=== PATIENT | male | born 1950 | race Caucasian/White ===

== ENCOUNTER 2019-09-01 00:40 | Inpatient (IN) | payer MEDICARE ==
[~2019-09-01] VITALS: Ht 185.4 cm; Wt 76.0 kg
[2019-09-01] MEDS ORDERED: hydrALAzine 20 MG/ML, 1ML ONE (00:44)
[2019-09-01] MEDS ORDERED: PIPERACILLIN/TAZO/PMX 3.375GM 50 ML ONE (00:51)
[2019-09-01] MEDS ORDERED: PIPERACILLIN/TAZO/PMX 3.375GM 50 ML IVPB ONE (01:00)
[2019-09-01] MEDS ORDERED: hydrALAzine 20 MG/ML, 1ML IV ONE ×2 (01:00)
[2019-09-01] MEDS ORDERED: ZIPRASIDONE 20 MG INJ IM ONE ×2 (01:00→01:07)
[2019-09-01] MEDS ORDERED: VANCOMYCIN PER PHARMACY MC ONE (01:00)
--- NOTE | 2019-09-01 01:28 | NUR ---
ABX DELAYED DUE TO LAB OBTAINING BLOOD CULTURES
[2019-09-01] MEDS ORDERED: PLEASE ENTER ALLERGIES MC SCH (01:30)
[2019-09-01] MEDS ORDERED: [UNRECOGNIZED DRUG - REMARK] MC SCH (01:30)
--- NOTE | 2019-09-01 01:34 | NUR ---
ZOSYN HELD DUE TO ALLERGY TO AMPICILLIN
[2019-09-01] MEDS ORDERED: CEFTRIAXONE PMX 1GM/50ML 50 ML ONE (01:36)
[2019-09-01 01:48] LABS: MICROSCOPIC INDICATED
--- NOTE | 2019-09-01 01:49 | NUR ---
PT TO BE INTUBATED DUE TO INABILITY TO PROTECT AIRWAY. LOC DECREASED SINCE ARRIVAL TO ER. PT ALSO BECOMING MORE AGITATED AND UNABLE TO FOLLOW COMMANDS.
[2019-09-01 01:50] LABS: MEAN CORPUSCULAR HEMOGLOBIN 33.4 pg (27.5-34.5); MEAN CORPUSCULAR HGB CONC 33.1 g/dL (33.2-36.2); MEAN CORPUSCULAR VOLUME 101.1 fL (81-97); RED BLOOD COUNT 7.09 x10^6/uL (4.38-5.82); RED CELL DISTRIBUTION WIDTH 14.3 % (9.4-14.8)
[2019-09-01 01:52] LABS: ALANINE AMINOTRANSFERASE 50 U/L (12-78); ALBUMIN 4.8 g/dL (3.4-5.0); ANION GAP 12 mmol/L (5-15); CALCIUM 11.3 mg/dL (8.5-10.1); CHLORIDE 103 mmol/L (98-107); CREATININE 2.05 mg/dL (0.7-1.3)
[2019-09-01 01:55] LABS: ALKALINE PHOSPHATASE 148 U/L (45-117); BILIRUBIN,TOTAL 1.5 mg/dL (0.2-1.0); TROPONIN I 0.065 ng/mL (0.000-0.045)
[2019-09-01] MEDS ORDERED: SODIUM CHLORIDE 0.9% 1,000ML IVBOLUS ONE ×3 (02:00→11:30)
[2019-09-01] MEDS ORDERED: CEFTRIAXONE PMX 1GM/50ML 50 ML IV ONE (02:00)
[2019-09-01] MEDS ORDERED: VANCOMYCIN 2,000 MG in SODIUM CHLORIDE 0.9% 500 ML IV ONE (02:00)
[2019-09-01 02:12] LABS: BASOPHILS # (AUTO) 0.02 x10^3/uL (0-0.1); BASOPHILS % (AUTO) 0 % (0-1); EOSINOPHILS % (AUTO) 0 % (1-7); LYMPHOCYTES # (AUTO) 0.95 x10^3/uL (1-3.4); LYMPHOCYTES % (AUTO) 4 % (22-44); MD MORPH REVIEW ONLY; MEAN PLATELET VOLUME 9.8 fL (7.4-10.4); MONOCYTES % (AUTO) 7 % (2-9); NEUTROPHILS # (AUTO) 19.83 x10^3/uL (1.8-6.8); NEUTROPHILS % (AUTO) 89 % (42-75); PLATELET COUNT 153 x10^3/uL (130-400)
[2019-09-01 02:13] LABS: <PLATELET ESTIMATE> ADEQUATE; ANISOCYTOSIS 1+; LARGE PLATELETS 2+; TEAR DROPS 1+
--- NOTE | 2019-09-01 02:28 | NUR ---
PT INTUBATED BY DR. GONSALES WITH AN 8.0 ET TUBE, 25CM AT LIPS. OG PLACED, 1400ML OF STOMACH CONTENTS SUCTIONED OUT. PT HAS ALSO ONLY HAD 80ML OF DARK URINE OUTPUT UPON ARRIVAL. RECEIVING 1L OF NS FOR SEPSIS PROTOCOL, RECEIVED 2 MORE LITERS AT SENDING FACILITY. NO ABX WERE GIVEN AT SENDING FACJILITY.
[2019-09-01] MEDS ORDERED: SUCCINYLCHOLINE 20 MG/ML, 10ML IVPush ONE (02:30)
[2019-09-01] MEDS ORDERED: ETOMIDATE 20 MG/10 ML IVPush ONE (02:30)
[2019-09-01] MEDS ORDERED: PROPOFOL 100 ML IV PRN (02:30)
[2019-09-01] MEDS ORDERED: MIDAZOLAM 1 MG/ML, 2ML ONE (02:55)
[2019-09-01] MEDS ORDERED: ACETAMINOPHEN 650 MG SUPP ONE ×2 (02:55→07:41)
--- NOTE | 2019-09-01 03:34 | NUR ---
BACK FROM CT. PT TOLERATING SEDATION WELL. NO DISTRESS NOTED. REPORT TO JULIA COVARRUBIAS
--- NOTE | 2019-09-01 04:30 | NUR ---
PULL WORKER ASSUMED PT CARE, OFF JESSICA DUMONT STATED PT RECIVED RECTAL 650 TYLENOL PRIOR TO PULL WORKER TAKING OVER CARE.
[2019-09-01] MEDS ORDERED: SODIUM CHLORIDE 0.9% 1,000 ML IV SCH ×2 (04:54→09:30)
[2019-09-01] MEDS ORDERED: ONDANSETRON ODT 4 MG PO PRN (05:00)
[2019-09-01] MEDS ORDERED: PROMETHAZINE 25 MG/ML, 1ML IM PRN (05:00)
[2019-09-01] MEDS ORDERED: ONDANSETRON 2MG/ML, 2ML IVPush PRN (05:00)
[2019-09-01] MEDS ORDERED: DOCUSATE 100 MG CAPSULE PO PRN (05:00)
[2019-09-01] MEDS: CEFTRIAXONE PMX 1GM/50ML 50 ML IV SCH (05:00)
[2019-09-01] MEDS ORDERED: VANCOMYCIN PER PHARMACY MC PRN (05:00)
[2019-09-01] MEDS ORDERED: PHARMACY MAY ADJ FOR RENAL FX MC SCH (05:30)
[2019-09-01] MEDS ORDERED: LIDOCAINE-MPF 1%, 2ML ENDO PRN (05:30)
[2019-09-01] MEDS ORDERED: PHARMACOKINETIC MONITORING MC PRN (05:30)
[2019-09-01] MEDS ORDERED: HEPARIN 5,000 UNITS/ML, 1ML ONE (05:31)
[2019-09-01] MEDS: AZITHROMYCIN 500 MG in SODIUM CHLORIDE 0.9% 250 ML IV SCH (05:35)
[2019-09-01] MEDS: HEPARIN 5,000 UNITS/ML, 1ML SQ SCH ×3 (05:35→20:36)
[2019-09-01 05:45] LABS: FREE T4 (FREE THYROXINE) 1.17 ng/dL (0.76-1.46)
[2019-09-01] MEDS ORDERED: METRONIDAZOLE PMX 500MG/100ML 100 ML ONE (06:05)
--- NOTE | 2019-09-01 07:05 | NUR ---
RECEIVED REPORT FROM CHRIS. PT TOLERATING VENT SETTINGS AT THIS TIME WITH OCCAS AGITATION WHILE RECEIVING REPORT. PT TEMP REMAINS ELEVATED & IS DIAPHORETIC- DR GONSALES AWARE. NGT & FC PATENT & SUCTIONING/DRAINING WELL. NO VISITORS AT BS.
[2019-09-01] MEDS: METRONIDAZOLE PMX 500MG/100ML 100 ML IV SCH ×3 (07:22→22:38)
--- NOTE | 2019-09-01 07:44 | NUR ---
PT HR INCREASED TO 220-230'S AT REST FOR ~1.5 MINS THEN RETURNED TO 120'S, EKG DONE, ERP & ICU MD NOTIFIED, NO NEW ORDERS AT THIS TIME.
[2019-09-01 07:53] LABS: C-REACTIVE PROTEIN, QUANT 3.8 mg/dL (0.02-0.49)
[2019-09-01 08:00] LABS: MEAN CORPUSCULAR HEMOGLOBIN 33.3 pg (27.5-34.5); MEAN CORPUSCULAR HGB CONC 33.1 g/dL (33.2-36.2); MEAN CORPUSCULAR VOLUME 100.7 fL (81-97); MEAN PLATELET VOLUME 9.8 fL (7.4-10.4); PLATELET COUNT 163 x10^3/uL (130-400); RED BLOOD COUNT 6.94 x10^6/uL (4.38-5.82); RED CELL DISTRIBUTION WIDTH 14.8 % (9.4-14.8)
[2019-09-01] MEDS ORDERED: ACETAMINOPHEN 650 MG SUPP PR ONE (08:00)
--- NOTE | 2019-09-01 08:10 | NUR ---
PT MILDLY AGITATED AT TIMES, PROPOFOL INCREASED PER EMAR, PT BP TOLERATING INCREASE & CALMER.
[2019-09-01 08:13] LABS: MD YES
[2019-09-01 08:15] LABS: LYMPH#(MANUAL) 1.72 x10^3/uL (1-3.4); LYMPHS% (MANUAL) 8 % (22-44); MONOS#(MANUAL) 1.08 x10^3/uL (0.3-2.7); MONOS% (MANUAL) 5 % (2-9)
[2019-09-01 08:18] LABS: BANDS%(MANUAL) 13 % (0-7); SEG#(MANUAL) 15.91 x10^3/uL (1.8-6.8); SEGS% (MANUAL) 74 % (42-75)
[2019-09-01 08:19] LABS: ANISOCYTOSIS 1+
[2019-09-01 08:20] LABS: <PLATELET ESTIMATE> ADEQUATE; LARGE PLATELETS 2+
[2019-09-01] MEDS ORDERED: LORazepam 2 MG/ML, 1ML ONE ×2 (08:24→11:00)
[2019-09-01 08:25] LABS: CREATINE KINASE, TOTAL 430 U/L (39-308)
[2019-09-01 08:28] LABS: TROPONIN I 0.385 ng/mL (0.000-0.045)
[2019-09-01] MEDS ORDERED: LORazepam 2 MG/ML, 1ML IVPush ONE (08:30)
[2019-09-01] MEDS: MIDAZOLAM HCL 50 MG in SODIUM CHLORIDE 0.9% 40 ML IV PRN ×2 (09:00→15:50)
[2019-09-01] MEDS ORDERED: FAMOTIDINE 20 MG/2 ML IVPush SCH (09:00)
--- NOTE | 2019-09-01 09:01 | NUR ---
PT VS REPORTED TO KT LOFTON INITIATED WITH PRESSURE BAG, AWAITING LEVOPHED & CL PLACEMENT.
--- NOTE | 2019-09-01 09:10 | NUR ---
DR SCHULZ AT BS, ADDT'L 2LNS INTIATED PER DR SCHULZ, AWAITING ALBUMIN, DR SCHULZ TO RETURN TO ED FOR CL PLACEMENT AFTER NS & ALBUMIN INFUSED.
[2019-09-01 09:14] LABS: PROTHROMBIN TIME 10.2 Seconds (9.6-11.5)
[2019-09-01 09:15] LABS: INTERNATIONAL NORMALIZED RATIO 0.96 (0.93-1.1)
[2019-09-01 09:24] LABS: FIO2 70 %
[2019-09-01] MEDS ORDERED: ALBUMIN HUMAN 25% 100 ML IV ONE (09:30)
[2019-09-01 09:31] LABS: D-DIMER 18.7 ug/mlFEU (0.00-0.52)
[2019-09-01 09:33] LABS: AMPHETAMINE SCREEN, URINE Negative (Negative); BARBITURATE SCREEN, URINE Negative (Negative); BENZODIAZEPINE SCREEN, URINE Negative (Negative); CANNABINOID SCREEN, URINE Positive (Negative); COCAINE SCREEN, URINE Negative (Negative); METHADONE SCREEN, URINE Negative (Negative); OPIATE SCREEN, URINE Negative (Negative)
--- NOTE | 2019-09-01 11:05 | NUR ---
PT BECOMING MORE AGITATED, DR THEODORE NOTIFIED, ATIVAN GIVEN PER VERBAL MD ORDER. FC & OGT DRAINING/SUCTIONING WELL WITH IMPROVED UOP.
[2019-09-01] MEDS: LORazepam 2 MG/ML, 1ML IVPush PRN (11:10)
--- NOTE | 2019-09-01 11:20 | NUR ---
Pt to be admitted to ICU, room 8. Report called to Daisy.
[2019-09-01] MEDS ORDERED: FAMOTIDINE 20 MG/2 ML ONE (12:49)
[2019-09-01] MEDS: SODIUM CHLORIDE 0.9% 1,000 ML IV SCH ×2 (13:02→20:39)
[2019-09-01] MEDS: FAMOTIDINE 20 MG/2 ML IVPush SCH (13:02)
[2019-09-01 16:22] LABS: MICROSCOPIC INDICATED
[2019-09-01 16:57] LABS: ALANINE AMINOTRANSFERASE 32 U/L (12-78); ALBUMIN 3.8 g/dL (3.4-5.0); ANION GAP 9 mmol/L (5-15); CALCIUM 9.5 mg/dL (8.5-10.1); CHLORIDE 116 mmol/L (98-107)
[2019-09-01 17:00] LABS: ALKALINE PHOSPHATASE 83 U/L (45-117); BILIRUBIN,TOTAL 1.1 mg/dL (0.2-1.0); CREATININE 1.83 mg/dL (0.7-1.3); TOTAL PROTEIN 7.5 g/dL (6.4-8.2)
[2019-09-01] MEDS ORDERED: MIDAZOLAM 1 MG/ML, 5ML ONE (17:01)
[2019-09-01] MEDS ORDERED: PROPOFOL 10 MG/ML, 100ML IV ONE (17:01)
[2019-09-01] MEDS ORDERED: SUCCINYLCHOLINE 20 MG/ML, 10ML ONE (17:01)
[2019-09-01] MEDS ORDERED: ETOMIDATE 20 MG/10 ML ONE (17:01)
[2019-09-01 17:07] LABS: TROPONIN I 0.352 ng/mL (0.000-0.045)
[2019-09-01] MEDS: morphine SULFATE 10 MG/ML, 1ML IVPush PRN (20:48)
[2019-09-01 22:14] VITALS: BP 103/65
[2019-09-01] MEDS: PROPOFOL 100 ML IV PRN (22:39)
[2019-09-02 04:00] VITALS: BP 102/63
[2019-09-02] MEDS: CEFTRIAXONE PMX 1GM/50ML 50 ML IV SCH (04:02)
[2019-09-02] MEDS: MIDAZOLAM HCL 50 MG in SODIUM CHLORIDE 0.9% 40 ML IV PRN ×2 (04:05→17:17)
[2019-09-02] MEDS: AZITHROMYCIN 500 MG in SODIUM CHLORIDE 0.9% 250 ML IV SCH (04:34)
[2019-09-02 05:27] LABS: ANION GAP 9 mmol/L (5-15); CALCIUM 8.9 mg/dL (8.5-10.1); CHLORIDE 118 mmol/L (98-107)
[2019-09-02 05:32] LABS: MEAN CORPUSCULAR HEMOGLOBIN 33.6 pg (27.5-34.5); MEAN CORPUSCULAR VOLUME 101.6 fL (81-97); MEAN PLATELET VOLUME 10.4 fL (7.4-10.4); PLATELET COUNT 126 x10^3/uL (130-400); RED BLOOD COUNT 5.61 x10^6/uL (4.38-5.82); RED CELL DISTRIBUTION WIDTH 15.3 % (9.4-14.8)
[2019-09-02] MEDS: METRONIDAZOLE PMX 500MG/100ML 100 ML IV SCH ×3 (05:40→21:39)
[2019-09-02 05:42] LABS: ALANINE AMINOTRANSFERASE 28 U/L (12-78); ALKALINE PHOSPHATASE 66 U/L (45-117); BILIRUBIN,TOTAL 0.9 mg/dL (0.2-1.0); CHOL/HDL RATIO 1.8; CHOLESTEROL, TOTAL 75 mg/dL (140-239); CREATININE 1.37 mg/dL (0.7-1.3); HDL CHOL % 55 % (26-37); HDL CHOLESTEROL (DIRECT) 41 mg/dL (40-60); LDL CHOLESTEROL,CALCULATED 23 mg/dL (54-169); LDL/HDL RATIO 0.6 (0.5-3.0); TOTAL PROTEIN 6.5 g/dL (6.4-8.2); TRIGLYCERIDES 56 mg/dL (50-200); VLDL CHOLESTEROL 11 mg/dL (0-25)
--- NOTE | 2019-09-02 06:19 | NUR ---
LATE ENTRY FOR 0258 ON 09/01/2019 RECTAL TYLENOL GIVEN FOR FEVER OF 100.6. VERBAL ORDER GIVEN BY DR. GONSALES FOR 650MG RECTAL TYLENOL.
[2019-09-02 06:21] LABS: BASOPHILS # (AUTO) 0.01 x10^3/uL (0-0.1); BASOPHILS % (AUTO) 0 % (0-1); EOSINOPHILS % (AUTO) 0 % (1-7); LYMPHOCYTES # (AUTO) 0.95 x10^3/uL (1-3.4); LYMPHOCYTES % (AUTO) 6 % (22-44); MD SCAN; MONOCYTES # (AUTO) 1.46 x10^3/uL (0.2-0.8); MONOCYTES % (AUTO) 9 % (2-9); NEUTROPHILS # (AUTO) 14.06 x10^3/uL (1.8-6.8); NEUTROPHILS % (AUTO) 85 % (42-75)
[2019-09-02] MEDS: LACTATED RINGERS 1,000 ML IV SCH (07:58)
[2019-09-02] MEDS ORDERED: SODIUM CHLORIDE 0.9% 1,000 ML IV SCH (09:30)
--- NOTE | 2019-09-02 13:11 | NUR ---
TF GOAL: w/ propofol: PROMOTE @ 80ML/HR off propofol: PROMOTE @ 90ML/HR
[2019-09-02] MEDS: FAMOTIDINE 20 MG/2 ML IVPush SCH (20:13)
[2019-09-02] MEDS: PROPOFOL 100 ML IV PRN (21:15)
[2019-09-03] MEDS: PROPOFOL 100 ML IV PRN ×3 (03:00→19:55)
[2019-09-03] MEDS: LACTATED RINGERS 1,000 ML IV SCH (03:01)
[2019-09-03] MEDS: CEFTRIAXONE PMX 1GM/50ML 50 ML IV SCH (03:56)
[2019-09-03] MEDS: AZITHROMYCIN 500 MG in SODIUM CHLORIDE 0.9% 250 ML IV SCH (04:33)
[2019-09-03 04:52] LABS: ANION GAP 6 mmol/L (5-15); CALCIUM 8.7 mg/dL (8.5-10.1); CHLORIDE 120 mmol/L (98-107); CREATININE 1.03 mg/dL (0.7-1.3)
[2019-09-03 05:08] LABS: MEAN CORPUSCULAR HEMOGLOBIN 33.7 pg (27.5-34.5); MEAN CORPUSCULAR HGB CONC 33.6 g/dL (33.2-36.2); MEAN CORPUSCULAR VOLUME 100.3 fL (81-97); MEAN PLATELET VOLUME 10.2 fL (7.4-10.4); PLATELET COUNT 123 x10^3/uL (130-400); RED BLOOD COUNT 4.91 x10^6/uL (4.38-5.82); RED CELL DISTRIBUTION WIDTH 15.3 % (9.4-14.8)
[2019-09-03] MEDS: METRONIDAZOLE PMX 500MG/100ML 100 ML IV SCH (05:43)
[2019-09-03 05:55] LABS: BASOPHILS # (AUTO) 0.02 x10^3/uL (0-0.1); BASOPHILS % (AUTO) 0 % (0-1); EOSINOPHILS # (AUTO) 0.01 x10^3/uL (0-0.4); EOSINOPHILS % (AUTO) 0 % (1-7); LYMPHOCYTES # (AUTO) 0.85 x10^3/uL (1-3.4); LYMPHOCYTES % (AUTO) 6 % (22-44); MD SCAN; MONOCYTES # (AUTO) 1.03 x10^3/uL (0.2-0.8); MONOCYTES % (AUTO) 7 % (2-9); NEUTROPHILS # (AUTO) 12.81 x10^3/uL (1.8-6.8); NEUTROPHILS % (AUTO) 87 % (42-75)
[2019-09-03] MEDS: MIDAZOLAM HCL 50 MG in SODIUM CHLORIDE 0.9% 40 ML IV PRN (16:38)
[2019-09-03] MEDS: FAMOTIDINE 20 MG/2 ML IVPush SCH (19:54)
[2019-09-04] MEDS: PROPOFOL 100 ML IV PRN ×2 (00:47→04:55)
[2019-09-04] MEDS: hydrALAzine 20 MG/ML, 1ML IVPush PRN ×4 (04:08→21:40)
[2019-09-04] MEDS: CEFTRIAXONE PMX 1GM/50ML 50 ML IV SCH (04:56)
[2019-09-04] MEDS: AZITHROMYCIN 500 MG in SODIUM CHLORIDE 0.9% 250 ML IV SCH (04:56)
[2019-09-04 05:33] LABS: BASOPHILS # (AUTO) 0.04 x10^3/uL (0-0.1); BASOPHILS % (AUTO) 0 % (0-1); EOSINOPHILS # (AUTO) 0.05 x10^3/uL (0-0.4); EOSINOPHILS % (AUTO) 0 % (1-7); LYMPHOCYTES # (AUTO) 1.05 x10^3/uL (1-3.4); LYMPHOCYTES % (AUTO) 8 % (22-44); MD NO; MEAN CORPUSCULAR HEMOGLOBIN 33.3 pg (27.5-34.5); MEAN CORPUSCULAR HGB CONC 32.9 g/dL (33.2-36.2); MEAN CORPUSCULAR VOLUME 101.2 fL (81-97); MEAN PLATELET VOLUME 9.7 fL (7.4-10.4); MONOCYTES # (AUTO) 0.68 x10^3/uL (0.2-0.8); MONOCYTES % (AUTO) 5 % (2-9); NEUTROPHILS % (AUTO) 86 % (42-75); PLATELET COUNT 120 x10^3/uL (130-400); RED BLOOD COUNT 4.96 x10^6/uL (4.38-5.82); RED CELL DISTRIBUTION WIDTH 14.9 % (9.4-14.8)
[2019-09-04 07:31] LABS: ANION GAP 8 mmol/L (5-15); CHLORIDE 120 mmol/L (98-107); CREATININE 0.82 mg/dL (0.7-1.3)
[2019-09-04] MEDS: LISINOPRIL 20 MG TABLET PO SCH (10:27)
[2019-09-04] MEDS: METOCLOPRAMIDE 5 MG/ML, 2ML IVPush SCH ×3 (10:27→20:18)
[2019-09-04] MEDS: DEXTROSE 5% 1,000 ML IV SCH (10:27)
[2019-09-04] MEDS: LORazepam 2 MG/ML, 1ML IVPush PRN ×3 (13:31→20:19)
[2019-09-04] MEDS: FAMOTIDINE 20 MG/2 ML IVPush SCH (20:18)
[2019-09-04] MEDS: morphine SULFATE 10 MG/ML, 1ML IVPush PRN (21:41)
[2019-09-05] MEDS: morphine SULFATE 10 MG/ML, 1ML IVPush PRN (01:49)
[2019-09-05] MEDS ORDERED: LIDOCAINE-MPF 1%, 2ML ENDO PRN (03:00)
[2019-09-05] MEDS: PROPOFOL 100 ML IV PRN ×5 (04:31→23:16)
[2019-09-05] MEDS: METOCLOPRAMIDE 5 MG/ML, 2ML IVPush SCH ×4 (04:34→22:19)
[2019-09-05] MEDS: DEXTROSE 5% 1,000 ML IV SCH (04:34)
[2019-09-05 04:42] LABS: MEAN CORPUSCULAR HEMOGLOBIN 33.7 pg (27.5-34.5); MEAN CORPUSCULAR HGB CONC 33.2 g/dL (33.2-36.2); MEAN CORPUSCULAR VOLUME 101.4 fL (81-97); MEAN PLATELET VOLUME 9.7 fL (7.4-10.4); PLATELET COUNT 115 x10^3/uL (130-400); RED BLOOD COUNT 4.79 x10^6/uL (4.38-5.82); RED CELL DISTRIBUTION WIDTH 15.2 % (9.4-14.8)
[2019-09-05 04:54] LABS: ANION GAP 5 mmol/L (5-15); CALCIUM 8.5 mg/dL (8.5-10.1); CHLORIDE 117 mmol/L (98-107); CREATININE 0.67 mg/dL (0.7-1.3)
[2019-09-05 04:57] LABS: BASOPHILS # (AUTO) 0.01 x10^3/uL (0-0.1); BASOPHILS % (AUTO) 0 % (0-1); EOSINOPHILS # (AUTO) 0.11 x10^3/uL (0-0.4); EOSINOPHILS % (AUTO) 1 % (1-7); LYMPHOCYTES # (AUTO) 0.81 x10^3/uL (1-3.4); LYMPHOCYTES % (AUTO) 7 % (22-44); MD SCAN; MONOCYTES # (AUTO) 0.93 x10^3/uL (0.2-0.8); MONOCYTES % (AUTO) 8 % (2-9); NEUTROPHILS # (AUTO) 10.48 x10^3/uL (1.8-6.8); NEUTROPHILS % (AUTO) 85 % (42-75)
[2019-09-05] MEDS: CEFTRIAXONE PMX 1GM/50ML 50 ML IV SCH (05:07)
[2019-09-05] MEDS: FAMOTIDINE 20 MG/2 ML IVPush SCH ×2 (08:36→20:20)
[2019-09-05] MEDS: LISINOPRIL 20 MG TABLET PO SCH (08:37)
[2019-09-05] MEDS: DIAZEPAM ELIXIR 1 MG/ML NG SCH ×3 (10:22→20:20)
[2019-09-05] MEDS: THIAMINE 200 MG in SODIUM CHLORIDE 0.9% 50 ML IV SCH (10:27)
[2019-09-06] MEDS: DEXTROSE 5% 1,000 ML IV SCH (00:44)
[2019-09-06] MEDS: PROPOFOL 100 ML IV PRN ×4 (02:33→21:32)
[2019-09-06] MEDS: METOCLOPRAMIDE 5 MG/ML, 2ML IVPush SCH ×2 (03:53→09:22)
[2019-09-06] MEDS: DIAZEPAM ELIXIR 1 MG/ML NG SCH ×4 (03:54→20:54)
[2019-09-06] MEDS: CEFTRIAXONE PMX 1GM/50ML 50 ML IV SCH (03:54)
[2019-09-06 04:03] LABS: ANION GAP 7 mmol/L (5-15); CALCIUM 8.9 mg/dL (8.5-10.1); CHLORIDE 111 mmol/L (98-107); MEAN CORPUSCULAR HEMOGLOBIN 33.1 pg (27.5-34.5); MEAN CORPUSCULAR HGB CONC 32.7 g/dL (33.2-36.2); MEAN PLATELET VOLUME 9.9 fL (7.4-10.4); PLATELET COUNT 121 x10^3/uL (130-400); RED BLOOD COUNT 4.96 x10^6/uL (4.38-5.82); RED CELL DISTRIBUTION WIDTH 14.9 % (9.4-14.8)
[2019-09-06 04:44] LABS: BASOPHILS # (AUTO) 0.01 x10^3/uL (0-0.1); BASOPHILS % (AUTO) 0 % (0-1); EOSINOPHILS # (AUTO) 0.51 x10^3/uL (0-0.4); EOSINOPHILS % (AUTO) 4 % (1-7); LYMPHOCYTES # (AUTO) 0.86 x10^3/uL (1-3.4); LYMPHOCYTES % (AUTO) 7 % (22-44); MD SCAN; MONOCYTES # (AUTO) 0.55 x10^3/uL (0.2-0.8); MONOCYTES % (AUTO) 4 % (2-9); NEUTROPHILS # (AUTO) 11.16 x10^3/uL (1.8-6.8); NEUTROPHILS % (AUTO) 85 % (42-75)
[2019-09-06] MEDS: LISINOPRIL 20 MG TABLET PO SCH (08:16)
[2019-09-06] MEDS: FAMOTIDINE 20 MG/2 ML IVPush SCH ×2 (08:17→20:54)
[2019-09-06] MEDS: THIAMINE 200 MG in SODIUM CHLORIDE 0.9% 50 ML IV SCH (10:51)
[2019-09-06] MEDS: LACTULOSE 10 GM/15 ML UDC PO SCH ×2 (10:54→20:54)
[2019-09-06] MEDS ORDERED: SODIUM CHLORIDE 0.9% 1,000ML IVBOLUS ONE ×2 (15:30→21:30)
[2019-09-06] MEDS: METOPROLOL TARTRATE 25 MG TAB PO SCH ×2 (15:33→23:19)
[2019-09-06] MEDS: morphine SULFATE 10 MG/ML, 1ML IVPush PRN (15:45)
[2019-09-06] MEDS: OPIUM/BELLADONNA SUPP.RECT 16.2-30 MG PR PRN (20:49)
[2019-09-07 01:54] LABS: ANION GAP 5 mmol/L (5-15); CHLORIDE 114 mmol/L (98-107); CREATININE 0.74 mg/dL (0.7-1.3); TRIGLYCERIDES 102 mg/dL (50-200)
[2019-09-07 01:57] LABS: TROPONIN I 0.065 ng/mL (0.000-0.045)
[2019-09-07 02:03] LABS: BASOPHILS # (AUTO) 0.03 x10^3/uL (0-0.1); BASOPHILS % (AUTO) 0 % (0-1); EOSINOPHILS # (AUTO) 0.71 x10^3/uL (0-0.4); EOSINOPHILS % (AUTO) 6 % (1-7); LYMPHOCYTES # (AUTO) 1.04 x10^3/uL (1-3.4); LYMPHOCYTES % (AUTO) 9 % (22-44); MD NO; MEAN CORPUSCULAR HEMOGLOBIN 33.6 pg (27.5-34.5); MEAN CORPUSCULAR HGB CONC 33.1 g/dL (33.2-36.2); MEAN CORPUSCULAR VOLUME 101.5 fL (81-97); MEAN PLATELET VOLUME 9.6 fL (7.4-10.4); MONOCYTES # (AUTO) 0.91 x10^3/uL (0.2-0.8); MONOCYTES % (AUTO) 8 % (2-9); NEUTROPHILS # (AUTO) 8.35 x10^3/uL (1.8-6.8); NEUTROPHILS % (AUTO) 76 % (42-75); PLATELET COUNT 123 x10^3/uL (130-400); RED BLOOD COUNT 4.44 x10^6/uL (4.38-5.82); RED CELL DISTRIBUTION WIDTH 14.4 % (9.4-14.8)
[2019-09-07] MEDS: PROPOFOL 100 ML IV PRN ×5 (02:37→23:21)
[2019-09-07] MEDS: DIAZEPAM ELIXIR 1 MG/ML NG SCH (03:52)
[2019-09-07] MEDS: OPIUM/BELLADONNA SUPP.RECT 16.2-30 MG PR PRN (04:05)
[2019-09-07] MEDS: CEFTRIAXONE PMX 1GM/50ML 50 ML IV SCH (05:11)
[2019-09-07] MEDS: METOCLOPRAMIDE 5 MG/ML, 2ML IVPush SCH ×4 (06:27→23:44)
[2019-09-07] MEDS: METOPROLOL TARTRATE 25 MG TAB PO SCH ×3 (07:30→23:44)
[2019-09-07] MEDS ORDERED: ETOMIDATE 20 MG/10 ML ONE (08:29)
[2019-09-07] MEDS ORDERED: PROPOFOL 10 MG/ML, 100ML IV ONE (08:29)
[2019-09-07] MEDS ORDERED: MIDAZOLAM 1 MG/ML, 5ML ONE (08:29)
[2019-09-07] MEDS ORDERED: SUCCINYLCHOLINE 20 MG/ML, 10ML ONE (08:29)
[2019-09-07] MEDS: LACTULOSE 10 GM/15 ML UDC PO SCH ×2 (09:00→21:05)
[2019-09-07] MEDS: morphine SULFATE 10 MG/ML, 1ML IVPush PRN ×4 (09:23→23:17)
[2019-09-07] MEDS: FAMOTIDINE 20 MG/2 ML IVPush SCH ×2 (10:07→21:05)
[2019-09-07] MEDS: THIAMINE 200 MG in SODIUM CHLORIDE 0.9% 50 ML IV SCH (10:07)
[2019-09-07] MEDS ORDERED: OMNIPAQUE 350 MG/ML, 100ML BOTTLE ONE (13:50)
[2019-09-07] MEDS: METRONIDAZOLE PMX 500MG/100ML 100 ML IV SCH (18:12)
[2019-09-07] MEDS: SODIUM CHLORIDE 0.45% 1,000 ML IV SCH (19:50)
[2019-09-08] MEDS: METRONIDAZOLE PMX 500MG/100ML 100 ML IV SCH ×3 (00:25→16:48)
[2019-09-08] MEDS: PROPOFOL 100 ML IV PRN ×4 (03:25→16:48)
[2019-09-08 04:34] LABS: BASOPHILS # (AUTO) 0.01 x10^3/uL (0-0.1); BASOPHILS % (AUTO) 0 % (0-1); EOSINOPHILS # (AUTO) 0.48 x10^3/uL (0-0.4); EOSINOPHILS % (AUTO) 4 % (1-7); LYMPHOCYTES # (AUTO) 0.88 x10^3/uL (1-3.4); LYMPHOCYTES % (AUTO) 8 % (22-44); MD NO; MEAN CORPUSCULAR HEMOGLOBIN 33.6 pg (27.5-34.5); MEAN CORPUSCULAR HGB CONC 33.4 g/dL (33.2-36.2); MEAN CORPUSCULAR VOLUME 100.8 fL (81-97); MEAN PLATELET VOLUME 9.6 fL (7.4-10.4); MONOCYTES # (AUTO) 1.44 x10^3/uL (0.2-0.8); MONOCYTES % (AUTO) 13 % (2-9); NEUTROPHILS # (AUTO) 8.71 x10^3/uL (1.8-6.8); NEUTROPHILS % (AUTO) 76 % (42-75); PLATELET COUNT 143 x10^3/uL (130-400); RED BLOOD COUNT 4.17 x10^6/uL (4.38-5.82); RED CELL DISTRIBUTION WIDTH 14.4 % (9.4-14.8)
[2019-09-08 04:40] LABS: ANION GAP 6 mmol/L (5-15); CALCIUM 8.4 mg/dL (8.5-10.1); CHLORIDE 115 mmol/L (98-107); CREATININE 0.73 mg/dL (0.7-1.3); TRIGLYCERIDES 127 mg/dL (50-200)
[2019-09-08] MEDS: CEFTRIAXONE PMX 1GM/50ML 50 ML IV SCH (05:20)
[2019-09-08] MEDS: METOCLOPRAMIDE 5 MG/ML, 2ML IVPush SCH ×3 (06:35→17:49)
[2019-09-08] MEDS: SODIUM CHLORIDE 0.45% 1,000 ML IV SCH (07:15)
[2019-09-08] MEDS: FAMOTIDINE 20 MG/2 ML IVPush SCH ×2 (07:33→21:29)
[2019-09-08] MEDS: METOPROLOL TARTRATE 25 MG TAB PO SCH ×2 (07:33→15:09)
[2019-09-08] MEDS: LACTULOSE 10 GM/15 ML UDC PO SCH ×2 (07:34→21:29)
[2019-09-08] MEDS: LORazepam 2 MG/ML, 1ML IVPush PRN (08:48)
[2019-09-08] MEDS: THIAMINE 200 MG in SODIUM CHLORIDE 0.9% 50 ML IV SCH (09:27)
[2019-09-08] MEDS ORDERED: FENTANYL PF 250 MCG/5ML ONE (18:54)
[2019-09-08] MEDS ORDERED: CEFAZOLIN 1,000 MG ONE (19:05)
[2019-09-08] MEDS ORDERED: ADENOSINE 6 MG/2 ML ONE (20:02)
[2019-09-08] MEDS ORDERED: NOREPINEPHRINE 8 MG in SODIUM CHLORIDE 0.9% 242 ML IV PRN (21:00)
[2019-09-08] MEDS: hydrALAzine 20 MG/ML, 1ML IVPush PRN (22:11)
[2019-09-09] MEDS: METOPROLOL TARTRATE 25 MG TAB PO SCH ×4 (00:06→23:53)
[2019-09-09] MEDS: SODIUM CHLORIDE 0.45% 1,000 ML IV SCH ×2 (00:06→11:54)
[2019-09-09] MEDS: morphine SULFATE 10 MG/ML, 1ML IVPush PRN ×4 (00:07→15:50)
[2019-09-09] MEDS: METOCLOPRAMIDE 5 MG/ML, 2ML IVPush SCH ×2 (00:08→05:49)
[2019-09-09] MEDS: METRONIDAZOLE PMX 500MG/100ML 100 ML IV SCH ×4 (00:09→23:53)
[2019-09-09 04:49] LABS: MEAN CORPUSCULAR HEMOGLOBIN 33.8 pg (27.5-34.5); MEAN CORPUSCULAR HGB CONC 33.6 g/dL (33.2-36.2); MEAN CORPUSCULAR VOLUME 100.6 fL (81-97); MEAN PLATELET VOLUME 9.6 fL (7.4-10.4); PLATELET COUNT 165 x10^3/uL (130-400); RED BLOOD COUNT 4.79 x10^6/uL (4.38-5.82); RED CELL DISTRIBUTION WIDTH 14.7 % (9.4-14.8)
[2019-09-09 05:00] LABS: ANION GAP 6 mmol/L (5-15); CALCIUM 8.2 mg/dL (8.5-10.1); CHLORIDE 111 mmol/L (98-107); CREATININE 0.73 mg/dL (0.7-1.3)
[2019-09-09] MEDS: PROPOFOL 100 ML IV PRN ×3 (05:48→23:53)
[2019-09-09 05:57] LABS: BASOPHILS % (AUTO) 0 % (0-1); EOSINOPHILS % (AUTO) 0 % (1-7); LYMPHOCYTES # (AUTO) 0.39 x10^3/uL (1-3.4); LYMPHOCYTES % (AUTO) 2 % (22-44); MD SCAN; MONOCYTES # (AUTO) 0.93 x10^3/uL (0.2-0.8); MONOCYTES % (AUTO) 5 % (2-9); NEUTROPHILS # (AUTO) 17.39 x10^3/uL (1.8-6.8); NEUTROPHILS % (AUTO) 93 % (42-75)
[2019-09-09] MEDS: FAMOTIDINE 20 MG/2 ML IVPush SCH ×2 (07:25→20:47)
[2019-09-09] MEDS: LACTULOSE 10 GM/15 ML UDC PO SCH ×2 (09:46→20:47)
[2019-09-09] MEDS: THIAMINE 200 MG in SODIUM CHLORIDE 0.9% 50 ML IV SCH (09:47)
[2019-09-09] MEDS: LORazepam 2 MG/ML, 1ML IVPush PRN (20:47)
[2019-09-09] MEDS: OXYcodone IR 5MG TABLET PO PRN (20:48)
[2019-09-10] MEDS: PROPOFOL 100 ML IV PRN ×3 (04:12→22:04)
[2019-09-10] MEDS: SODIUM CHLORIDE 0.45% 1,000 ML IV SCH ×2 (04:12→21:17)
[2019-09-10 04:16] LABS: ANION GAP 3 mmol/L (5-15); BASOPHILS # (AUTO) 0.02 x10^3/uL (0-0.1); BASOPHILS % (AUTO) 0 % (0-1); CHLORIDE 112 mmol/L (98-107); EOSINOPHILS # (AUTO) 0.38 x10^3/uL (0-0.4); EOSINOPHILS % (AUTO) 3 % (1-7); LYMPHOCYTES # (AUTO) 0.83 x10^3/uL (1-3.4); LYMPHOCYTES % (AUTO) 6 % (22-44); MD NO; MEAN CORPUSCULAR HEMOGLOBIN 33.5 pg (27.5-34.5); MEAN CORPUSCULAR HGB CONC 32.9 g/dL (33.2-36.2); MEAN CORPUSCULAR VOLUME 101.7 fL (81-97); MEAN PLATELET VOLUME 9.8 fL (7.4-10.4); MONOCYTES # (AUTO) 1.24 x10^3/uL (0.2-0.8); MONOCYTES % (AUTO) 9 % (2-9); NEUTROPHILS # (AUTO) 11.59 x10^3/uL (1.8-6.8); NEUTROPHILS % (AUTO) 82 % (42-75); PLATELET COUNT 178 x10^3/uL (130-400); RED BLOOD COUNT 4.36 x10^6/uL (4.38-5.82); RED CELL DISTRIBUTION WIDTH 14.9 % (9.4-14.8); TRIGLYCERIDES 110 mg/dL (50-200)
[2019-09-10] MEDS: LORazepam 2 MG/ML, 1ML IVPush PRN (04:40)
[2019-09-10] MEDS: morphine SULFATE 10 MG/ML, 1ML IVPush PRN ×2 (04:40→21:25)
[2019-09-10] MEDS: hydrALAzine 20 MG/ML, 1ML IVPush PRN (06:35)
[2019-09-10] MEDS: LACTULOSE 10 GM/15 ML UDC PO SCH ×2 (08:00→21:17)
[2019-09-10] MEDS: FAMOTIDINE 20 MG/2 ML IVPush SCH ×2 (08:00→21:17)
[2019-09-10] MEDS: METOPROLOL TARTRATE 25 MG TAB PO SCH ×2 (08:02→15:16)
[2019-09-10] MEDS: METRONIDAZOLE PMX 500MG/100ML 100 ML IV SCH ×2 (08:13→16:12)
[2019-09-10] MEDS: THIAMINE 200 MG in SODIUM CHLORIDE 0.9% 50 ML IV SCH (09:59)
[2019-09-10] MEDS ORDERED: MIDAZOLAM 1 MG/ML, 2ML ONE (16:01)
[2019-09-10] MEDS ORDERED: FENTANYL PF 250 MCG/5ML ONE (16:01)
[2019-09-10] MEDS ORDERED: ROCURONIUM 10MG/ML,5ML ONE ×2 (16:03→17:53)
[2019-09-10] MEDS ORDERED: CEFOTETAN PMX 2GM/50ML 50 ML ONE (17:54)
[2019-09-11] MEDS: METOPROLOL TARTRATE 25 MG TAB PO SCH ×4 (00:43→23:23)
[2019-09-11] MEDS: METRONIDAZOLE PMX 500MG/100ML 100 ML IV SCH ×3 (00:44→17:33)
[2019-09-11] MEDS: PROPOFOL 100 ML IV PRN ×3 (02:48→19:10)
[2019-09-11 04:52] LABS: MEAN CORPUSCULAR HEMOGLOBIN 33.8 pg (27.5-34.5); MEAN CORPUSCULAR HGB CONC 33.1 g/dL (33.2-36.2); MEAN PLATELET VOLUME 9.7 fL (7.4-10.4); PLATELET COUNT 193 x10^3/uL (130-400); RED BLOOD COUNT 5.01 x10^6/uL (4.38-5.82); RED CELL DISTRIBUTION WIDTH 14.6 % (9.4-14.8)
[2019-09-11 05:02] LABS: ANION GAP 5 mmol/L (5-15); CALCIUM 7.8 mg/dL (8.5-10.1); CHLORIDE 111 mmol/L (98-107)
[2019-09-11 05:04] LABS: CREATININE 0.84 mg/dL (0.7-1.3); TRIGLYCERIDES 132 mg/dL (50-200)
[2019-09-11 05:47] LABS: MD YES
[2019-09-11 05:48] LABS: BAND#(MANUAL) 0.51 x10^3/uL; BANDS%(MANUAL) 2 % (0-7); LYMPH#(MANUAL) 0.77 x10^3/uL (1-3.4); LYMPHS% (MANUAL) 3 % (22-44); MONOS#(MANUAL) 1.02 x10^3/uL (0.3-2.7); MONOS% (MANUAL) 4 % (2-9); SEGS% (MANUAL) 91 % (42-75)
[2019-09-11 05:49] LABS: <PLATELET ESTIMATE> ADEQUATE; <PLT MORPHOLOGY> NORMAL PLT MORPH
[2019-09-11] MEDS: LACTULOSE 10 GM/15 ML UDC PO SCH ×2 (08:48→20:50)
[2019-09-11] MEDS: FAMOTIDINE 20 MG/2 ML IVPush SCH ×2 (08:48→20:50)
--- NOTE | 2019-09-11 10:31 | NUR ---
New TF goals: Vital AF @ 80 ml/hour on propofol and 85 ml/hour off propofol
[2019-09-11] MEDS: THIAMINE 200 MG in SODIUM CHLORIDE 0.9% 50 ML IV SCH (11:36)
[2019-09-11] MEDS: morphine SULFATE 10 MG/ML, 1ML IVPush PRN (11:41)
[2019-09-11] MEDS: SODIUM CHLORIDE 0.45% 1,000 ML IV SCH (20:50)
[2019-09-11] MEDS: ACETAMINOPHEN 325 MG TABLET PO PRN (22:39)
[2019-09-12] MEDS: METRONIDAZOLE PMX 500MG/100ML 100 ML IV SCH ×3 (00:17→16:10)
[2019-09-12] MEDS: PROPOFOL 100 ML IV PRN ×2 (02:31→15:08)
[2019-09-12 04:34] LABS: ANION GAP 4 mmol/L (5-15); CALCIUM 7.5 mg/dL (8.5-10.1); CHLORIDE 114 mmol/L (98-107); CREATININE 0.79 mg/dL (0.7-1.3)
[2019-09-12 04:36] LABS: MEAN CORPUSCULAR HEMOGLOBIN 33.8 pg (27.5-34.5); MEAN CORPUSCULAR HGB CONC 32.9 g/dL (33.2-36.2); MEAN CORPUSCULAR VOLUME 102.6 fL (81-97); MEAN PLATELET VOLUME 9.2 fL (7.4-10.4); PLATELET COUNT 216 x10^3/uL (130-400); RED BLOOD COUNT 4.31 x10^6/uL (4.38-5.82); RED CELL DISTRIBUTION WIDTH 14.9 % (9.4-14.8)
[2019-09-12 05:49] LABS: BASOPHILS % (AUTO) 0 % (0-1); EOSINOPHILS # (AUTO) 0.25 x10^3/uL (0-0.4); EOSINOPHILS % (AUTO) 1 % (1-7); LYMPHOCYTES # (AUTO) 0.63 x10^3/uL (1-3.4); LYMPHOCYTES % (AUTO) 3 % (22-44); MD SCAN; MONOCYTES # (AUTO) 0.53 x10^3/uL (0.2-0.8); MONOCYTES % (AUTO) 3 % (2-9); NEUTROPHILS # (AUTO) 17.76 x10^3/uL (1.8-6.8); NEUTROPHILS % (AUTO) 93 % (42-75)
[2019-09-12] MEDS: LACTULOSE 10 GM/15 ML UDC PO SCH ×2 (08:04→21:00)
[2019-09-12] MEDS: FAMOTIDINE 20 MG/2 ML IVPush SCH ×2 (08:04→21:00)
[2019-09-12] MEDS: METOPROLOL TARTRATE 25 MG TAB PO SCH ×2 (08:04→16:10)
[2019-09-12] MEDS: THIAMINE 200 MG in SODIUM CHLORIDE 0.9% 50 ML IV SCH (09:26)
[2019-09-12] MEDS: SODIUM CHLORIDE 0.45% 1,000 ML IV SCH (13:46)
[2019-09-12] MEDS: morphine SULFATE 10 MG/ML, 1ML IVPush PRN (13:47)
[2019-09-13] MEDS: METOPROLOL TARTRATE 25 MG TAB PO SCH ×3 (00:28→17:54)
[2019-09-13] MEDS: METRONIDAZOLE PMX 500MG/100ML 100 ML IV SCH ×3 (00:28→17:54)
[2019-09-13] MEDS: PROPOFOL 100 ML IV PRN ×3 (00:29→23:31)
[2019-09-13 04:30] LABS: MEAN CORPUSCULAR HEMOGLOBIN 33.4 pg (27.5-34.5); MEAN CORPUSCULAR HGB CONC 32.7 g/dL (33.2-36.2); MEAN CORPUSCULAR VOLUME 102.1 fL (81-97); MEAN PLATELET VOLUME 9.3 fL (7.4-10.4); PLATELET COUNT 222 x10^3/uL (130-400); RED BLOOD COUNT 4.22 x10^6/uL (4.38-5.82); RED CELL DISTRIBUTION WIDTH 15.1 % (9.4-14.8)
[2019-09-13 04:42] LABS: ANION GAP 5 mmol/L (5-15); CALCIUM 7.5 mg/dL (8.5-10.1); CHLORIDE 116 mmol/L (98-107)
[2019-09-13 04:44] LABS: CREATININE 0.61 mg/dL (0.7-1.3); TRIGLYCERIDES 98 mg/dL (50-200)
[2019-09-13] MEDS: SODIUM CHLORIDE 0.45% 1,000 ML IV SCH ×2 (04:58→21:13)
[2019-09-13 05:08] LABS: MD YES
[2019-09-13 05:11] LABS: BAND#(MANUAL) 0.16 x10^3/uL; BANDS%(MANUAL) 1 % (0-7); EOS#(MANUAL) 0.63 x10^3/uL (0.0-0.4); EOS% (MANUAL) 4 % (1-7); LYMPH#(MANUAL) 0.63 x10^3/uL (1-3.4); LYMPHS% (MANUAL) 4 % (22-44); MONOS#(MANUAL) 0.63 x10^3/uL (0.3-2.7); MONOS% (MANUAL) 4 % (2-9); SEG#(MANUAL) 13.75 x10^3/uL (1.8-6.8); SEGS% (MANUAL) 87 % (42-75)
[2019-09-13 05:12] LABS: <PLATELET ESTIMATE> ADEQUATE; <PLT MORPHOLOGY> NORMAL PLT MORPH
[2019-09-13] MEDS: FAMOTIDINE 20 MG/2 ML IVPush SCH ×2 (09:55→21:10)
[2019-09-13] MEDS: morphine SULFATE 10 MG/ML, 1ML IVPush PRN ×3 (10:31→16:03)
[2019-09-13] MEDS: THIAMINE 200 MG in SODIUM CHLORIDE 0.9% 50 ML IV SCH (11:16)
[2019-09-14] MEDS: METOPROLOL TARTRATE 25 MG TAB PO SCH ×3 (03:15→17:53)
[2019-09-14] MEDS: METRONIDAZOLE PMX 500MG/100ML 100 ML IV SCH ×3 (03:16→17:54)
[2019-09-14 04:20] LABS: MEAN CORPUSCULAR HEMOGLOBIN 33.7 pg (27.5-34.5); MEAN CORPUSCULAR HGB CONC 32.9 g/dL (33.2-36.2); MEAN CORPUSCULAR VOLUME 102.3 fL (81-97); MEAN PLATELET VOLUME 8.9 fL (7.4-10.4); PLATELET COUNT 226 x10^3/uL (130-400); RED BLOOD COUNT 3.87 x10^6/uL (4.38-5.82)
[2019-09-14 04:31] LABS: ANION GAP 6 mmol/L (5-15); CALCIUM 7.3 mg/dL (8.5-10.1); CHLORIDE 116 mmol/L (98-107); CREATININE 0.59 mg/dL (0.7-1.3); TRIGLYCERIDES 86 mg/dL (50-200)
[2019-09-14 04:36] LABS: BASOPHILS % (AUTO) 0 % (0-1); EOSINOPHILS # (AUTO) 0.53 x10^3/uL (0-0.4); EOSINOPHILS % (AUTO) 4 % (1-7); LYMPHOCYTES # (AUTO) 0.87 x10^3/uL (1-3.4); LYMPHOCYTES % (AUTO) 6 % (22-44); MD SCAN; MONOCYTES # (AUTO) 0.93 x10^3/uL (0.2-0.8); MONOCYTES % (AUTO) 6 % (2-9); NEUTROPHILS # (AUTO) 12.08 x10^3/uL (1.8-6.8); NEUTROPHILS % (AUTO) 84 % (42-75)
[2019-09-14] MEDS: PROPOFOL 100 ML IV PRN (05:25)
[2019-09-14] MEDS: morphine SULFATE 10 MG/ML, 1ML IVPush PRN (08:18)
[2019-09-14] MEDS: FAMOTIDINE 20 MG/2 ML IVPush SCH ×2 (08:22→20:36)
[2019-09-14] MEDS: THIAMINE 200 MG in SODIUM CHLORIDE 0.9% 50 ML IV SCH (11:57)
[2019-09-14] MEDS: OXYcodone IR 5MG TABLET PO PRN ×3 (17:54→23:09)
[2019-09-14] MEDS: ACETAMINOPHEN 325 MG TABLET PO PRN (23:09)
[2019-09-15 01:51] VITALS: BP 155/81
[2019-09-15] MEDS: METRONIDAZOLE PMX 500MG/100ML 100 ML IV SCH ×2 (01:51→10:52)
[2019-09-15] MEDS: METOPROLOL TARTRATE 25 MG TAB PO SCH ×3 (01:52→17:38)
[2019-09-15] MEDS: OXYcodone IR 5MG TABLET PO PRN ×3 (04:19→21:50)
[2019-09-15] MEDS: ACETAMINOPHEN 325 MG TABLET PO PRN (04:19)
[2019-09-15 04:42] LABS: BASOPHILS # (AUTO) 0.02 x10^3/uL (0-0.1); BASOPHILS % (AUTO) 0 % (0-1); EOSINOPHILS # (AUTO) 0.47 x10^3/uL (0-0.4); EOSINOPHILS % (AUTO) 4 % (1-7); LYMPHOCYTES # (AUTO) 0.86 x10^3/uL (1-3.4); LYMPHOCYTES % (AUTO) 7 % (22-44); MD NO; MEAN CORPUSCULAR HEMOGLOBIN 33.5 pg (27.5-34.5); MEAN CORPUSCULAR HGB CONC 33.2 g/dL (33.2-36.2); MEAN CORPUSCULAR VOLUME 100.9 fL (81-97); MEAN PLATELET VOLUME 9.1 fL (7.4-10.4); MONOCYTES # (AUTO) 1.11 x10^3/uL (0.2-0.8); MONOCYTES % (AUTO) 9 % (2-9); NEUTROPHILS # (AUTO) 10.63 x10^3/uL (1.8-6.8); NEUTROPHILS % (AUTO) 81 % (42-75); PLATELET COUNT 268 x10^3/uL (130-400); RED BLOOD COUNT 4.04 x10^6/uL (4.38-5.82); RED CELL DISTRIBUTION WIDTH 14.8 % (9.4-14.8)
[2019-09-15 04:43] LABS: ANION GAP 6 mmol/L (5-15); CALCIUM 7.8 mg/dL (8.5-10.1); CHLORIDE 118 mmol/L (98-107); CREATININE 0.61 mg/dL (0.7-1.3)
[2019-09-15] MEDS: FAMOTIDINE 20 MG/2 ML IVPush SCH ×2 (08:03→21:50)
[2019-09-15] MEDS: POTASSIUM CHLORIDE 10% 40 MEQ/30 ML UDC PO SCH ×2 (08:03→21:50)
[2019-09-15 10:31] VITALS: BP 161/88
[2019-09-15] MEDS: morphine SULFATE 10 MG/ML, 1ML IVPush PRN (10:40)
[2019-09-15] MEDS: THIAMINE 200 MG in SODIUM CHLORIDE 0.9% 50 ML IV SCH (11:57)
[2019-09-15 13:58] VITALS: BP 160/89
[2019-09-15 18:36] VITALS: BP 162/91
[2019-09-16 01:34] VITALS: BP 155/88
[2019-09-16] MEDS: METOPROLOL TARTRATE 25 MG TAB PO SCH ×3 (02:55→18:36)
[2019-09-16] MEDS: OXYcodone IR 5MG TABLET PO PRN ×2 (02:55→23:56)
[2019-09-16 05:19] LABS: BASOPHILS # (AUTO) 0.07 x10^3/uL (0-0.1); BASOPHILS % (AUTO) 1 % (0-1); EOSINOPHILS # (AUTO) 0.21 x10^3/uL (0-0.4); EOSINOPHILS % (AUTO) 1 % (1-7); LYMPHOCYTES # (AUTO) 0.87 x10^3/uL (1-3.4); LYMPHOCYTES % (AUTO) 5 % (22-44); MD NO; MEAN CORPUSCULAR HEMOGLOBIN 33.4 pg (27.5-34.5); MEAN CORPUSCULAR HGB CONC 33.3 g/dL (33.2-36.2); MEAN CORPUSCULAR VOLUME 100.1 fL (81-97); MEAN PLATELET VOLUME 9.3 fL (7.4-10.4); MONOCYTES # (AUTO) 1.33 x10^3/uL (0.2-0.8); MONOCYTES % (AUTO) 8 % (2-9); NEUTROPHILS # (AUTO) 13.44 x10^3/uL (1.8-6.8); NEUTROPHILS % (AUTO) 84 % (42-75); PLATELET COUNT 297 x10^3/uL (130-400); RED BLOOD COUNT 4.27 x10^6/uL (4.38-5.82); RED CELL DISTRIBUTION WIDTH 14.8 % (9.4-14.8)
[2019-09-16 05:29] LABS: ANION GAP 5 mmol/L (5-15); CHLORIDE 121 mmol/L (98-107); CREATININE 0.59 mg/dL (0.7-1.3)
[2019-09-16 07:46] VITALS: BP 154/82
[2019-09-16] MEDS: FAMOTIDINE 20 MG/2 ML IVPush SCH ×2 (09:10→23:55)
[2019-09-16 11:41] VITALS: BP 143/82
[2019-09-16 13:15] VITALS: BP 148/86
[2019-09-16 18:37] VITALS: BP 149/77
[2019-09-17 01:46] VITALS: BP 149/83
[2019-09-17] MEDS: METOPROLOL TARTRATE 25 MG TAB PO SCH ×3 (02:04→17:10)
[2019-09-17 05:56] LABS: BASOPHILS # (AUTO) 0.01 x10^3/uL (0-0.1); BASOPHILS % (AUTO) 0 % (0-1); EOSINOPHILS # (AUTO) 0.19 x10^3/uL (0-0.4); EOSINOPHILS % (AUTO) 1 % (1-7); LYMPHOCYTES # (AUTO) 1.19 x10^3/uL (1-3.4); LYMPHOCYTES % (AUTO) 9 % (22-44); MD NO; MEAN CORPUSCULAR HEMOGLOBIN 33.1 pg (27.5-34.5); MEAN CORPUSCULAR HGB CONC 32.8 g/dL (33.2-36.2); MEAN CORPUSCULAR VOLUME 101.1 fL (81-97); MEAN PLATELET VOLUME 9.4 fL (7.4-10.4); MONOCYTES # (AUTO) 1.11 x10^3/uL (0.2-0.8); MONOCYTES % (AUTO) 8 % (2-9); NEUTROPHILS # (AUTO) 11.16 x10^3/uL (1.8-6.8); NEUTROPHILS % (AUTO) 82 % (42-75); PLATELET COUNT 327 x10^3/uL (130-400); RED BLOOD COUNT 4.24 x10^6/uL (4.38-5.82)
[2019-09-17 06:00] LABS: ALBUMIN 1.9 g/dL (3.4-5.0); ANION GAP 6 mmol/L (5-15); CALCIUM 7.7 mg/dL (8.5-10.1); CHLORIDE 118 mmol/L (98-107)
[2019-09-17 06:03] LABS: ALANINE AMINOTRANSFERASE 29 U/L (12-78); ALKALINE PHOSPHATASE 78 U/L (45-117); BILIRUBIN,TOTAL 0.5 mg/dL (0.2-1.0); CREATININE 0.54 mg/dL (0.7-1.3); TOTAL PROTEIN 5.5 g/dL (6.4-8.2)
[2019-09-17 07:44] VITALS: BP 123/66
[2019-09-17] MEDS: FAMOTIDINE 20 MG/2 ML IVPush SCH ×2 (08:28→21:24)
[2019-09-17] MEDS: OXYcodone IR 5MG TABLET PO PRN ×3 (10:04→21:24)
[2019-09-17 12:51] VITALS: BP 133/76
[2019-09-17 18:23] VITALS: BP 146/91
[2019-09-17] MEDS: METOPROLOL TARTRATE 50 MG TAB PO SCH (21:25)
[2019-09-18 02:16] VITALS: BP 139/83
[2019-09-18 04:57] LABS: BASOPHILS # (AUTO) 0.09 x10^3/uL (0-0.1); BASOPHILS % (AUTO) 1 % (0-1); EOSINOPHILS # (AUTO) 0.33 x10^3/uL (0-0.4); EOSINOPHILS % (AUTO) 3 % (1-7); LYMPHOCYTES # (AUTO) 1.36 x10^3/uL (1-3.4); LYMPHOCYTES % (AUTO) 11 % (22-44); MD NO; MEAN CORPUSCULAR HEMOGLOBIN 33.3 pg (27.5-34.5); MEAN CORPUSCULAR HGB CONC 33.2 g/dL (33.2-36.2); MEAN CORPUSCULAR VOLUME 100.2 fL (81-97); MEAN PLATELET VOLUME 8.9 fL (7.4-10.4); MONOCYTES # (AUTO) 0.98 x10^3/uL (0.2-0.8); MONOCYTES % (AUTO) 8 % (2-9); NEUTROPHILS # (AUTO) 9.54 x10^3/uL (1.8-6.8); NEUTROPHILS % (AUTO) 78 % (42-75); PLATELET COUNT 322 x10^3/uL (130-400); RED BLOOD COUNT 4.13 x10^6/uL (4.38-5.82); RED CELL DISTRIBUTION WIDTH 14.7 % (9.4-14.8)
[2019-09-18 05:10] LABS: ANION GAP 5 mmol/L (5-15); CHLORIDE 112 mmol/L (98-107)
[2019-09-18] MEDS: OXYcodone IR 5MG TABLET PO PRN ×2 (05:28→12:56)
[2019-09-18 07:00] VITALS: BP 127/53
[2019-09-18] MEDS: METOPROLOL TARTRATE 50 MG TAB PO SCH ×2 (08:38→21:16)
[2019-09-18] MEDS: FAMOTIDINE 20 MG/2 ML IVPush SCH ×2 (08:38→21:16)
[2019-09-18] MEDS ORDERED: POTASSIUM CHLORIDE 20 MEQ TAB.ER.PRT PO ONE (13:00)
[2019-09-18 13:50] VITALS: BP 119/73
[2019-09-18] MEDS: ACETAMINOPHEN 325 MG TABLET PO PRN ×2 (15:47→21:15)
[2019-09-18 18:40] VITALS: BP 124/77
[2019-09-18] MEDS ORDERED: ZIPRASIDONE 20 MG INJ IM ONE (21:30)
[2019-09-19 01:47] VITALS: BP 115/74
[2019-09-19] MEDS: ACETAMINOPHEN 325 MG TABLET PO PRN (05:14)
[2019-09-19] MEDS: OXYcodone IR 5MG TABLET PO PRN (05:15)
[2019-09-19 05:33] LABS: ANION GAP 5 mmol/L (5-15); BASOPHILS # (AUTO) 0.03 x10^3/uL (0-0.1); BASOPHILS % (AUTO) 0 % (0-1); CHLORIDE 111 mmol/L (98-107); CREATININE 0.71 mg/dL (0.7-1.3); EOSINOPHILS # (AUTO) 0.22 x10^3/uL (0-0.4); EOSINOPHILS % (AUTO) 2 % (1-7); LYMPHOCYTES # (AUTO) 1.08 x10^3/uL (1-3.4); LYMPHOCYTES % (AUTO) 11 % (22-44); MD NO; MEAN CORPUSCULAR HEMOGLOBIN 33.3 pg (27.5-34.5); MEAN CORPUSCULAR HGB CONC 33.1 g/dL (33.2-36.2); MEAN CORPUSCULAR VOLUME 100.7 fL (81-97); MEAN PLATELET VOLUME 9.2 fL (7.4-10.4); MONOCYTES # (AUTO) 0.89 x10^3/uL (0.2-0.8); MONOCYTES % (AUTO) 9 % (2-9); NEUTROPHILS # (AUTO) 8.06 x10^3/uL (1.8-6.8); NEUTROPHILS % (AUTO) 78 % (42-75); PLATELET COUNT 335 x10^3/uL (130-400); RED CELL DISTRIBUTION WIDTH 14.9 % (9.4-14.8)
[2019-09-19] MEDS: FAMOTIDINE 20 MG/2 ML IVPush SCH ×2 (07:49→21:22)
[2019-09-19] MEDS: METOPROLOL TARTRATE 50 MG TAB PO SCH ×2 (07:50→21:22)
[2019-09-19 07:59] VITALS: BP 145/69
[2019-09-19] MEDS ORDERED: LORazepam 2 MG/ML, 1ML IVPush ONE (13:30)
[2019-09-19 13:33] VITALS: BP 120/83
[2019-09-19] MEDS ORDERED: LISI-170 PO (18:19)
[2019-09-19] MEDS ORDERED: FAMO-79 PO (18:19)
[2019-09-19] MEDS ORDERED: ATOR40TA78 PO (18:19)
[2019-09-19] MEDS ORDERED: METH500T7 PO (18:19)
[2019-09-19] MEDS ORDERED: LINA145C PO (18:19)
[2019-09-19] MEDS ORDERED: CARV6.2512 PO (18:19)
[2019-09-19 21:42] VITALS: BP 154/89
[2019-09-20 02:24] VITALS: BP 159/79
[2019-09-20] MEDS: ACETAMINOPHEN 325 MG TABLET PO PRN ×3 (04:33→18:34)
[2019-09-20 05:22] LABS: BASOPHILS # (AUTO) 0.05 x10^3/uL (0-0.1); BASOPHILS % (AUTO) 1 % (0-1); EOSINOPHILS # (AUTO) 0.24 x10^3/uL (0-0.4); EOSINOPHILS % (AUTO) 2 % (1-7); LYMPHOCYTES % (AUTO) 11 % (22-44); MD NO; MEAN CORPUSCULAR HEMOGLOBIN 33.5 pg (27.5-34.5); MEAN CORPUSCULAR HGB CONC 33.1 g/dL (33.2-36.2); MEAN CORPUSCULAR VOLUME 101.4 fL (81-97); MEAN PLATELET VOLUME 8.8 fL (7.4-10.4); MONOCYTES # (AUTO) 0.52 x10^3/uL (0.2-0.8); MONOCYTES % (AUTO) 5 % (2-9); NEUTROPHILS # (AUTO) 8.99 x10^3/uL (1.8-6.8); NEUTROPHILS % (AUTO) 82 % (42-75); PLATELET COUNT 327 x10^3/uL (130-400); RED BLOOD COUNT 4.31 x10^6/uL (4.38-5.82); RED CELL DISTRIBUTION WIDTH 14.5 % (9.4-14.8)
[2019-09-20 05:39] LABS: ANION GAP 7 mmol/L (5-15); CALCIUM 7.9 mg/dL (8.5-10.1); CHLORIDE 112 mmol/L (98-107)
[2019-09-20 05:41] LABS: CREATININE 0.64 mg/dL (0.7-1.3)
[2019-09-20 08:00] VITALS: BP 155/86
[2019-09-20] MEDS: FAMOTIDINE 20 MG/2 ML IVPush SCH (08:57)
[2019-09-20] MEDS: METOPROLOL TARTRATE 50 MG TAB PO SCH ×2 (08:57→21:46)
[2019-09-20 14:00] VITALS: BP 128/78
[2019-09-20] MEDS: POTASSIUM CHLORIDE 20 MEQ TAB.ER.PRT PO SCH ×2 (14:19→21:46)
[2019-09-20 19:04] VITALS: BP 131/83
[2019-09-20] MEDS: FAMOTIDINE 20 MG TABLET PO SCH (21:46)
[2019-09-20] MEDS: QUETIAPINE 25MG TABLET PO SCH (21:46)
[2019-09-21] MEDS: ACETAMINOPHEN 325 MG TABLET PO PRN ×5 (00:27→20:36)
[2019-09-21 02:14] VITALS: BP 126/76
[2019-09-21 05:34] LABS: BASOPHILS % (AUTO) 1 % (0-1); EOSINOPHILS # (AUTO) 0.45 x10^3/uL (0-0.4); EOSINOPHILS % (AUTO) 4 % (1-7); LYMPHOCYTES # (AUTO) 1.35 x10^3/uL (1-3.4); LYMPHOCYTES % (AUTO) 13 % (22-44); MD NO; MEAN CORPUSCULAR HEMOGLOBIN 33.3 pg (27.5-34.5); MEAN CORPUSCULAR VOLUME 100.9 fL (81-97); MEAN PLATELET VOLUME 8.6 fL (7.4-10.4); MONOCYTES # (AUTO) 0.65 x10^3/uL (0.2-0.8); MONOCYTES % (AUTO) 6 % (2-9); NEUTROPHILS # (AUTO) 8.13 x10^3/uL (1.8-6.8); NEUTROPHILS % (AUTO) 76 % (42-75); PLATELET COUNT 318 x10^3/uL (130-400); RED BLOOD COUNT 4.15 x10^6/uL (4.38-5.82); RED CELL DISTRIBUTION WIDTH 14.6 % (9.4-14.8)
[2019-09-21 05:44] LABS: ANION GAP 4 mmol/L (5-15); CALCIUM 7.9 mg/dL (8.5-10.1); CHLORIDE 113 mmol/L (98-107); CREATININE 0.69 mg/dL (0.7-1.3)
[2019-09-21 06:51] VITALS: BP 122/63
[2019-09-21] MEDS: IBUPROFEN 200 MG TABLET PO PRN ×3 (08:37→22:06)
[2019-09-21] MEDS: LOPERAMIDE 2 MG CAPSULE PO PRN ×2 (08:37→15:09)
[2019-09-21] MEDS: POTASSIUM CHLORIDE 20 MEQ TAB.ER.PRT PO SCH ×2 (08:38→20:08)
[2019-09-21] MEDS: METOPROLOL TARTRATE 50 MG TAB PO SCH ×2 (08:38→20:07)
[2019-09-21] MEDS: FAMOTIDINE 20 MG TABLET PO SCH ×2 (08:38→20:09)
[2019-09-21 13:19] VITALS: BP 131/79
[2019-09-21 18:41] VITALS: BP 145/76
[2019-09-21] MEDS: QUETIAPINE 25MG TABLET PO SCH (20:09)
[2019-09-22 00:30] VITALS: BP 129/77
[2019-09-22 06:35] VITALS: BP 130/83
[2019-09-22] MEDS: METOPROLOL TARTRATE 50 MG TAB PO SCH (07:47)
[2019-09-22] MEDS: FAMOTIDINE 20 MG TABLET PO SCH (07:47)
[2019-09-22] MEDS: IBUPROFEN 200 MG TABLET PO PRN ×2 (07:47→14:12)
[2019-09-22] MEDS: LOPERAMIDE 2 MG CAPSULE PO PRN ×2 (07:50→14:13)
[2019-09-22 08:46] LABS: BASOPHILS # (AUTO) 0.03 x10^3/uL (0-0.1); BASOPHILS % (AUTO) 0 % (0-1); EOSINOPHILS # (AUTO) 0.58 x10^3/uL (0-0.4); EOSINOPHILS % (AUTO) 7 % (1-7); LYMPHOCYTES # (AUTO) 1.15 x10^3/uL (1-3.4); LYMPHOCYTES % (AUTO) 13 % (22-44); MD NO; MEAN CORPUSCULAR HEMOGLOBIN 33.3 pg (27.5-34.5); MEAN CORPUSCULAR HGB CONC 32.5 g/dL (33.2-36.2); MEAN CORPUSCULAR VOLUME 102.5 fL (81-97); MEAN PLATELET VOLUME 8.4 fL (7.4-10.4); MONOCYTES # (AUTO) 0.59 x10^3/uL (0.2-0.8); MONOCYTES % (AUTO) 7 % (2-9); NEUTROPHILS # (AUTO) 6.52 x10^3/uL (1.8-6.8); NEUTROPHILS % (AUTO) 74 % (42-75); PLATELET COUNT 361 x10^3/uL (130-400)
[2019-09-22 08:52] LABS: CALCIUM 8.1 mg/dL (8.5-10.1)
[2019-09-22 08:53] LABS: CREATININE 0.77 mg/dL (0.7-1.3)
[2019-09-22 08:57] LABS: CHLORIDE 111 mmol/L (98-107)
[2019-09-22 09:02] LABS: ANION GAP 4 mmol/L (5-15)
[2019-09-22] MEDS ORDERED: QUET25TA7 PO (10:22)
[2019-09-22] MEDS: ACETAMINOPHEN 325 MG TABLET PO PRN (11:01)
[2019-09-22 12:58] VITALS: BP 121/70
== END 2019-09-22 15:38 | DRG 853 ==
LOC: ED 01:33 → EDIP 05:19 → ICU 11:47 → CCU 09-05 02:47 → 4NE 09-15 10:10
PROVIDERS: ADMIT Internal Medicine; ATTEND Family Medicine
PROC: 0T9B70Z Drainage of Bladder with Drainage Device, Via Natural or Artificial Opening (ICD-10-PCS; 2019-09-01)
PROC: 5A1945Z Respiratory Ventilation, 24-96 Consecutive Hours (ICD-10-PCS; 2019-09-01)
PROC: 0BH17EZ Insertion of Endotracheal Airway into Trachea, Via Natural or Artificial Opening (ICD-10-PCS; 2019-09-01)
PROC: 0BH17EZ Insertion of Endotracheal Airway into Trachea, Via Natural or Artificial Opening (ICD-10-PCS; principal; 2019-09-05)
PROC: 5A1955Z Respiratory Ventilation, Greater than 96 Consecutive Hours (ICD-10-PCS; 2019-09-05)
PROC: 0DT80ZZ Resection of Small Intestine, Open Approach (ICD-10-PCS; 2019-09-08)
PROC: 0D980ZZ Drainage of Small Intestine, Open Approach (ICD-10-PCS; 2019-09-08)
PROC: 5A09357 Assistance with Respiratory Ventilation, Less than 24 Consecutive Hours, Continuous Positive Airway Pressure (ICD-10-PCS; 2019-09-08)
PROC: 0DJD0ZZ Inspection of Lower Intestinal Tract, Open Approach (ICD-10-PCS; 2019-09-10)
DX: A41.51 Sepsis due to Escherichia coli [E. coli] (principal); J15.5 Pneumonia due to Escherichia coli; G93.41 Metabolic encephalopathy; N17.0 Acute kidney failure with tubular necrosis; I21.4 Non-ST elevation (NSTEMI) myocardial infarction; I60.9 Nontraumatic subarachnoid hemorrhage, unspecified; I61.1 Nontraumatic intracerebral hemorrhage in hemisphere, cortical; J96.01 Acute respiratory failure with hypoxia; K55.069 Acute infarction of intestine, part and extent unspecified; R65.21 Severe sepsis with septic shock; E87.2 Acidosis; F05 Delirium due to known physiological condition; I47.1 Supraventricular tachycardia; J98.11 Atelectasis; K56.1 Intussusception; K56.7 Ileus, unspecified; Z99.11 Dependence on respirator [ventilator] status; D69.6 Thrombocytopenia, unspecified; D75.1 Secondary polycythemia; E83.52 Hypercalcemia; E86.0 Dehydration; E87.5 Hyperkalemia; F03.90 Unspecified dementia, unspecified severity, without behavioral disturbance, psychotic disturbance, mood disturbance, and anxiety; F10.10 Alcohol abuse, uncomplicated; F12.10 Cannabis abuse, uncomplicated; F31.9 Bipolar disorder, unspecified; I10 Essential (primary) hypertension; I25.10 Atherosclerotic heart disease of native coronary artery without angina pectoris; I44.0 Atrioventricular block, first degree; K57.30 Diverticulosis of large intestine without perforation or abscess without bleeding; K58.9 Irritable bowel syndrome, unspecified; K66.0 Peritoneal adhesions (postprocedural) (postinfection); N05.9 Unspecified nephritic syndrome with unspecified morphologic changes; D72.829 Elevated white blood cell count, unspecified; R94.31 Abnormal electrocardiogram [ECG] [EKG]; Z95.9 Presence of cardiac and vascular implant and graft, unspecified; Z88.1 Allergy status to other antibiotic agents; Y92.009 Unspecified place in unspecified non-institutional (private) residence as the place of occurrence of the external cause; Z86.73 Personal history of transient ischemic attack (TIA), and cerebral infarction without residual deficits; Z88.0 Allergy status to penicillin; Z95.5 Presence of coronary angioplasty implant and graft; Z03.818 Encounter for observation for suspected exposure to other biological agents ruled out
CPT/HCPCS: 31500; 36415; 36600; 70450; 70496; 70498; 70551; 71045; 74018; 74177; 80048; 80053; 80061; 80307; 81001; 82040; 82140; 82330; 82378; 82550; 82570; 82668; 82803; 82962; 83036; 83605; 83615; 83735; 84145; 84156; 84439; 84443; 84478; 84484; 85025; 85379; 85610; 86140; 86301; 87040; 87070; 87077; 87081; 87086; 87186; 87205; 88307; 93005; 93308; 94002; 94003; 94150; 99195; 99292; C1726; G0378; J0153; J0456; J0690; J0696; J1644; J2250; J2550; J2704; J3010; J3370; J3411; J3486; J7070; P9047; Q9967; 92523-GN; C1765; J0330; J0360; J2060; J2270; J2765; J3490; J7030; J7040; J7050; J7120; U0001-CS

== ENCOUNTER 2019-10-01 17:36 | Emergency (ER) | payer MEDICARE ==
[~2019-10-01] VITALS: Ht 182.9 cm; Wt 77.9 kg
[~2019-10-01 17:36] MED LIST: ATOR40TA78 PO; CARV6.2512 PO; FAMO-79 PO; LINA145C PO; LISI-170 PO; METH500T7 PO; QUET25TA7 PO
[2019-10-01] MEDS ORDERED: SODIUM CHLORIDE FLUSH 10ML SYR IVF ONE ×2 (19:30→20:00)
[2019-10-01 19:42] LABS: BASOPHILS # (AUTO) 0.04 x10^3/uL (0-0.1); BASOPHILS % (AUTO) 1 % (0-1); EOSINOPHILS % (AUTO) 3 % (1-7); LYMPHOCYTES # (AUTO) 1.76 x10^3/uL (1-3.4); LYMPHOCYTES % (AUTO) 22 % (22-44); MD NO; MEAN CORPUSCULAR HEMOGLOBIN 33.5 pg (27.5-34.5); MEAN CORPUSCULAR HGB CONC 33.2 g/dL (33.2-36.2); MEAN PLATELET VOLUME 8.8 fL (7.4-10.4); MONOCYTES # (AUTO) 0.67 x10^3/uL (0.2-0.8); MONOCYTES % (AUTO) 8 % (2-9); NEUTROPHILS # (AUTO) 5.25 x10^3/uL (1.8-6.8); NEUTROPHILS % (AUTO) 66 % (42-75); PLATELET COUNT 231 x10^3/uL (130-400); RED CELL DISTRIBUTION WIDTH 14.7 % (9.4-14.8)
--- NOTE | 2019-10-01 19:46 | NUR ---
BREAK RN: PT. TO ROOM FROM LOBBY AT THIS TIME.
[2019-10-01 19:51] LABS: ALANINE AMINOTRANSFERASE 49 U/L (12-78); ANION GAP 5 mmol/L (5-15); CALCIUM 8.6 mg/dL (8.5-10.1); CHLORIDE 106 mmol/L (98-107); CREATININE 0.89 mg/dL (0.7-1.3)
[2019-10-01 19:53] LABS: ALKALINE PHOSPHATASE 108 U/L (45-117); BILIRUBIN,TOTAL 0.4 mg/dL (0.2-1.0); TOTAL PROTEIN 7.4 g/dL (6.4-8.2)
[2019-10-01] MEDS ORDERED: LINA145C PO (20:07)
[2019-10-01] MEDS ORDERED: ASPI-496 PO (20:07)
[2019-10-01] MEDS ORDERED: LISI-167 PO (20:07)
--- NOTE | 2019-10-01 20:08 | NUR ---
PT. C/O ABD PAIN OFF/ON SINCE D/C FROM HERE AFTER MULTIPLE ABD SURGERIES LAST MONTH. STATES D/C WAS LAST WEEK ON SUNDAY. ABD DISTENTED AND TENDER. PT. C/O NAUSEA BUT DENIES VOMITING. LBM SUNDAY. IV ESTABLISHED. B/P AND SPO2 MONITORS IN PLACE. CALL LIGHT IN REACH. ALL SAFETY MEASURES OBSERVED.
--- NOTE | 2019-10-01 20:13 | NUR ---
PT. AWARE OF NEED FOR UA; UNABLE TO PROVIDE AT THIS TIME. AWAITING CT.
[2019-10-01] MEDS ORDERED: OMNIPAQUE 350 MG/ML, 100ML BOTTLE ONE (20:55)
--- NOTE | 2019-10-01 20:57 | NUR ---
PT BACK FROM CT. ABLE TO STAND AT SIDE OF BED. INSTRUCTED ON CLEAN CATCH URINE SAMPLE.
[2019-10-01 21:29] LABS: MICROSCOPIC NOT IND
[2019-10-01 22:05] VITALS: BP 126/66
--- NOTE | 2019-10-01 22:06 | NUR ---
D/C INSTRUCTIONS & F/U APPT'S RV'WD WITH PT, HE VERBALIZES UNDERSTANDING. STATES HE WILL TAKE A CAB HOME. AMBULATED OUT OF ED WITHOUT DIFFICULTY.
== END 2019-10-01 22:07 | disposition home or self-care (01) ==
LOC: ED 21:17
DX: R10.84 Generalized abdominal pain (principal); I25.10 Atherosclerotic heart disease of native coronary artery without angina pectoris; I10 Essential (primary) hypertension; I25.2 Old myocardial infarction
CPT/HCPCS: 36415; 74177; 80053; 81003; 83690; 85025; 99285; Q9967